=== PATIENT | female | born 1960 | race Caucasian/White ===

== ENCOUNTER 2017-11-17 21:30 | Emergency (ER) | payer OTHER ==
[2017-11-17 21:43] VITALS: BP 146/78
--- NOTE | 2017-11-17 22:05 | ED Physician Documentation ---
PD HPI LOWER EXT INJURY - Stated complaint Stated Complaint: TOE INJURY - Chief complaint Chief Complaint: Trauma Ext - History obtained from History obtained from: Patient, Family - History of Present Illness PD HPI LOW EXT INJURY LOCATION: Left, Toe (4th) Type of injury: Blunt / blow (accidentally hit on a bed) Where injury occurred: Home (rental home) Timing - onset: How many hours ago (1) Timing - duration: Hours (1) Timing - details: Abrupt onset Pain level max: 7 Pain level now: 3 Improved by: Rest, Ice, Immobilization Worsened by: Moving, Palpating Associated symptoms: Swelling. No: Weakness, Numbness, Tingling Contributing factors: No: Anticoagulated, Prior ortho surgery Recently seen: Not recently seen Review of Systems Musculoskeletal: denies: Neck pain, Back pain Neurologic: denies: Focal weakness, Numbness, Head injury PD PAST MEDICAL HISTORY - Past Medical History Past Medical History: Yes Other Past Medical History: HX Cancer. - Past Surgical History Past Surgical History: No - Present Medications Home Medications: Ambulatory Orders Medication Instructions Recorded Confirmed Hydrocodone/Acetaminophen 1 - 2 each PO Q6H PRN #10 tablet 11/17/17 [Hydrocodon-Acetaminophen 5-325] - Social History Does the pt smoke?: No Smoking Status: Never smoker Does the pt drink ETOH?: No Does the pt have substance abuse?: No - Immunizations Immunizations are current?: Yes PD ED PE NORMAL - Vitals Vital signs reviewed: Yes - General General: Alert and oriented X 3, No acute distress - Derm Derm: Warm and dry - Extremities Extremities: Other (L foot - TTP over the 4th and 5th digits. mild swelling. NVI. o/w normal exam of the L foot. ) - Neuro Neuro: Alert and oriented X 3 Results - Vitals Vitals: Vital Signs - 24 hr 11/17/17 11/17/17 21:30 22:39 Temperature 36.5 C Heart Rate 88 Respiratory 16 17 Rate Blood Pressure 146/78 H O2 Saturation 97 Oxygen O2 Source Room air - Rads (name of study) L foot xray Radiology: Prelim report reviewed, EMP read contemporaneously, See rad report ( Fracture at the proximal metaphysis of the fifth proximal phalanx and the distal metaphysis of the fourth proximal phalanx. ) PD MEDICAL DECISION MAKING - ED course Complexity details: reviewed results, re-evaluated patient, considered differential, d/w patient, d/w family ED course: Patient is a 57-year-old female with fractures of the left fifth proximal phalanx and fourth proximal phalanx of the left foot. No other fractures. These were trini taped and placed in a postoperative shoe. Will prescribe pain medication for home and follow-up with her doctor. No open fractures. Patient counseled regarding signs and symptoms for which I believe and urgent re- evaluation would be necessary. Patient with good understanding of and agreement to plan and is comfortable going home at this time This document was made in part using voice recognition software. While efforts are made to proofread this document, sound alike and grammatical errors may occur. No nail injuries or subungual hematomas Departure - Departure Disposition: 01 Home, Self Care Clinical Impression: Toe fracture, left Qualifiers: Encounter type: initial encounter Toe: unspecified toe Fracture type: closed Fracture alignment: nondisplaced Qualified Code(s): S92.912A - Unspecified fracture of left toe(s), initial encounter for closed fracture Condition: Good Instructions: ED Fx Toe Closed Follow-Up: Opal Kelly MD [Primary Care Provider] - Within 1 week (for recheck) Prescriptions: Hydrocodone/Acetaminophen [Hydrocodon-Acetaminophen 5-325] 1 - 2 each PO Q6H PRN #10 tablet PRN Reason: pain Comments: Return if you worsen. Wear the post operative shoe for comfort. The trini tape will help as well. Follow-up with your doctor in 1 week for recheck. Do not drink alcohol or drive while on narcotic pain medicine. Note that many narcotic pain relievers also contain tylenol/acetaminophen. Please ensure that your total dose of acetaminophen from all sources does not exceed 3 grams (3000mg) per day. You may constipated on this medication, take a stool softener such as "Colace" twice a day while you are on it. Also recommend a qnxl-wtu-[id number] laxative such as senna or MiraLAX any day that you do not have a bowel movement. If you received narcotic pain medication in the emergency department, do not drive or operate machinery for the next 24 hours. Discharge Date/Time: 11/17/17 22:43
--- NOTE | 2017-11-17 22:31 | XRAY Preliminary Report ---
Exam: XR FOOT 3 VIEW LT IMPRESSION: 1. Fracture at the proximal metaphysis of the fifth proximal phalanx and the distal metaphysis of the fourth proximal phalanx. [facility] SITE ID: [id number]
--- NOTE | 2017-11-17 22:31 | XRAY Report ---
EXAM: LEFT FOOT RADIOGRAPHY EXAM DATE: 11/17/2017 10:08 PM. CLINICAL HISTORY: Pain after injury. COMPARISON: None. TECHNIQUE: 3 views. FINDINGS: Bones: Fracture at the proximal metaphysis of the fifth proximal phalanx with mild lateral angulation of the distal fracture fragment. Fracture in the distal metaphysis of the fourth proximal phalanx wi th minimal lateral angulation of the distal fracture fragment. Joints: No dislocation seen. Mild degenerative changes, for example at the first MTP joint. Soft Tissues: Soft tissue swelling. IMPRESSION: 1. Fracture at the proximal metaphysis of the fifth proximal phalanx and the distal metaphysis of the fourth proximal phalanx. [facility] Referring Provider Line: [phone] SITE ID: [id number]
[2017-11-17] MEDS ORDERED: HYDROcod/ACETAM 5/325 MG TABLET PO STA (22:32)
== END 2017-11-17 22:43 | disposition home or self-care (01) ==
LOC: ED 21:30
DX: S92.515A Nondisplaced fracture of proximal phalanx of left lesser toe(s), initial encounter for closed fracture (principal); W22.03XA Walked into furniture, initial encounter; Y92.009 Unspecified place in unspecified non-institutional (private) residence as the place of occurrence of the external cause
CPT/HCPCS: 73630; 99283; A9270